=== PATIENT | female | born 1975 | race Two or more races ===

== ENCOUNTER 2017-09-14 12:25 | Emergency (ER) | payer MEDICAID, OTHER ==
[~2017-09-14] VITALS: Ht 160 cm; Wt 63.5 kg
--- NOTE | 2017-09-14 13:01 | Emergency Room Report ---
History of Present Illness General Chief Complaint: Back Pain-No Injury Source: Patient Present Illness HPI 42-year-old female presents to the emergency department complaining of 10 out of 10 in severity acute onset right flank pain that radiates down into the bladder area x3 days. Patient reports pain comes and go she reports urinary frequency and dysuria. Patient denies fevers or chills however she states she feels very lethargic as if she is "sick" She denies hematuria or history of stones. She reports some nausea denies vomiting, constipation or diarrhea. Patient denies vaginal discharge, rashes or lesions in the genital area. Swollen tender lymph nodes. Denies recent strenuous activity. Denies CP, Palpitations, LOC, AMS, dizziness, Changes in Vision, Sensation, paresthesias, or a sudden severe headache. Allergies: Coded Allergies: PENICILLINS (Verified Allergy, Severe, 09/14/17) Patient History Past Medical History: see triage record Past Surgical History: none Pertinent Family History: none Last Menstrual Period: 2 weeks Now: No Reviewed Nursing Documentation: PMH: Agreed, PSxH: Agreed Nursing Documentation-PMH Past Medical History: No History, Except For Hx Asthma: Yes Review of Systems All Other Systems: negative except mentioned in HPI Physical Exam Vital Signs Date Time Temp Pulse Resp B/P (MAP) Pulse Ox O2 Delivery O2 Flow Rate FiO2 09/14/17 12:31 97.9 100 18 101/64 100 Room Air Sp02 EP Interpretation: reviewed, normal General Appearance: alert, GCS 15, non-toxic, mild distress Head: normocephalic, atraumatic ENT: hearing grossly normal, normal voice Neck: full range of motion Respiratory: lungs clear, normal breath sounds, speaking full sentences Cardiovascular #1: regular rate, rhythm Gastrointestinal: normal bowel sounds, soft, tenderness - Mild RUQ TTP, right CVA is most appreciable, no RLQ, macburny's. Rectal: deferred Genitourinary: CVA tenderness (R) Musculoskeletal: back normal, gait/station normal, normal range of motion, non- tender Neurologic: alert, oriented x3, responsive, motor strength/tone normal, sensory intact, speech normal, grossly normal Psychiatric: judgement/insight normal Skin: normal color, no rash, warm/dry, well hydrated Medical Decision Making PA Attestation Dr. Reinoso is my supervising Physician whom patient management has been discussed with. Diagnostic Impression: Primary Impression: Pyelonephritis Additional Impression: Cystitis ER Course 42-year-old female presents to the emergency department complaining of 10 out of 10 in severity acute onset right flank pain that radiates down into the bladder area x3 days. Patient reports pain comes and go she reports urinary frequency and dysuria. Patient denies fevers or chills however she states she feels very lethargic as if she is "sick" She denies hematuria or history of stones. She reports some nausea denies vomiting, constipation or diarrhea. Patient denies vaginal discharge, rashes or lesions in the genital area. Swollen tender lymph nodes. Denies recent strenuous activity. Denies CP, Palpitations, LOC, AMS, dizziness, Changes in Vision, Sensation, paresthesias, or a sudden severe headache. Ddx considered but are not limited to Diverticulitis, acute appy, diarrhea,UC, PUD, GE, pancreatitis, gallstone, kidney stone, pyelonephritis, UTI, obstruction. Vital signs: are WNL, pt. is afebrile H&PE are most consistent with UTi and possible Renal Stone ORDERS: - UA: RBC's, occult blood - US abdomen : small anechoic structures in the right kidney ED INTERVENTIONS: -- Percocet PO -Cipro PO -Rocephin IM DISCHARGE: At this time pt. is stable for d/c to home. Will provide printed patient care instructions, and any necessary prescriptions. Care plan and follow up instructions have been discussed with the patient prior to discharge. Labs Test 09/14/17 12:35 Urine Color Yellow Urine Appearance Slightly cloudy Urine pH 6 (4.5-8.0) Urine Specific Norman 1.010 (1.005-1.035) Urine Protein 3+ (NEGATIVE) Urine Glucose (UA) Negative (NEGATIVE) Urine Ketones Negative (NEGATIVE) Urine Occult Blood 2+ (NEGATIVE) Urine Nitrite Negative (NEGATIVE) Urine Bilirubin Negative (NEGATIVE) Urine Urobilinogen Normal MG/DL (0.0-1.0) Urine Leukocyte Esterase 3+ (NEGATIVE) Urine RBC 2-4 /HPF (0 - 2) Urine WBC 15-20 /HPF (0 - 2) Urine Squamous Epithelial Cells Many /LPF (NONE/OCC) Urine Bacteria Few /HPF (NONE) Urine HCG, Qualitative Negative CT/MRI/US Diagnostic Results CT/MRI/US Diagnostic Results : Imaging Test Ordered: Abdominal US Impression Notes "a small right renal parapelvic cyst otherwise does not mention hydronephrosis, stone, gallbladder abnormality or liver abnormality". Per official radiology report- Please see report for specific details. Please see official radiology report for further details. Last Vital Signs Date Time Temp Pulse Resp B/P (MAP) Pulse Ox O2 Delivery O2 Flow Rate FiO2 09/14/17 12:31 97.9 100 18 101/64 100 Room Air Disposition: HOME, SELF-CARE Condition: Stable Scripts Aspirin/Acetaminophen/Caffeine (EXCEDRIN MIGRAINE GELTAB) 1 Each Tablet 1 EACH PO Q6HR, #20 TAB Prov: Ana Botello 09/14/17 Tramadol Hcl* (ULTRAM*) 50 Mg Tablet 50 MG ORAL Q6H Y for For Pain, #10 TAB 0 Refills Prov: Ana Botello 09/14/17 Phenazopyridine Hcl* (PYRIDIUM*) 200 Mg Tablet 200 MG ORAL THREE TIMES A DAY for 3 Days, #9 TAB 0 Refills Prov: Ana Botello. 09/14/17 Ciprofloxacin Hcl* (CIPROFLOXACIN HCL*) 500 Mg Tablet 500 MG ORAL EVERY 12 HOURS for 10 Days, #20 TAB 0 Refills Prov: Ana Botello. 09/14/17 Departure Forms: Return to Work Return to Work Date: Sep 18, 2017 Work Restrictions: None, No Heavy Lifting, No Prolonged Standing Return to Full Activity: Sep 25, 2017 Patient Instructions: Pyelonephritis, Adult, Urinary Tract Infection, Easy-to- Read Additional Instructions: Take medications as directed. Follow up with a Primary Care Provider in 3-5 days, even if your symptoms have resolved. --Please review list of primary care clinics, if you do not already have a primary care provider Return sooner to ED if new symptoms occur, or current symptoms become worse. - Please note that this Emergency Department Report was dictated using [employer]sheep clipper technology software, occasionally this can lead to erroneous entry secondary to interpretation by the dictation equipment. Ana Botello Sep 14, 2017 13:01
[2017-09-14 13:10] LABS: APPEARANCE,URINE SLIGHTLY CLOUDY; BILIRUBIN, URINE NEGATIVE (NEGATIVE); GLUCOSE, URINE (UA) NEGATIVE (NEGATIVE); KETONES,URINE NEGATIVE (NEGATIVE); LEUKOCYTE ESTERASE ,URINE 3+ (NEGATIVE); NITRITE,URINE NEGATIVE (NEGATIVE); PH,URINE 6 (4.5-8.0); PROTEIN,URINE 3+ (NEGATIVE); UROBILINOGEN,URINE NORMAL MG/DL (0.0-1.0)
[2017-09-14 13:15] LABS: COLOR,URINE YELLOW
[2017-09-14] MEDS ORDERED: oxyCODONE HCL/Acetaminophen 5/325mg ORAL ONE (13:15)
[2017-09-14] MEDS ORDERED: Ciprofloxacin 500mg tab ORAL ONE (13:30)
--- NOTE | 2017-09-14 15:29 | Diagnostic Imaging Report ---
Indication: Right flank pain Technique: Martinez-scale and duplex images of the upper abdomen were obtained Comparison: none Findings: Gallbladder is unremarkable, without stones, wall thickening, nor pericholecystic fluid. Common bile duct measures 3 mm in diameter. No intrahepatic biliary ductal dilatation. Liver demonstrates normal echogenicity, no focal abnormality. Portal vein and hepatic veins are patent. Pancreas is unremarkable. Spleen is unremarkable. Left kidney measures 9.3 cm in length. Right kidney measures 10.8 cm length. Both kidneys demonstrate normal echogenicity. There is no hydronephrosis. There is a small right renal parapelvic cyst . Non-aneurysmal abdominal aorta . Impression: Essentially unremarkable exam. Negative for gallstones, dilated ducts, or other acute pathology Incidental finding right renal parapelvic cyst
[2017-09-14] MEDS ORDERED: Lidocaine 1% MPF 10mg/ml 5ml INJ ONE (16:15)
[2017-09-14] MEDS ORDERED: PHENAZOPYRIDIN200 MG ORAL (16:35)
[2017-09-14] MEDS ORDERED: CIPROFLOXACIN500 M2 ORAL (16:35)
[2017-09-14] MEDS ORDERED: TRAMADOL HCL50 MG ORAL (16:35)
[2017-09-14 16:36] VITALS: BP 114/75
[2017-09-14] MEDS ORDERED: EXCEDRIN MIGRA1 EACH PO (16:36)
[2017-09-14 16:53] VITALS: BP 114/75
== END 2017-09-14 16:53 | disposition home or self-care (01) ==
LOC: EMR 13:00
DX: N12 Tubulo-interstitial nephritis, not specified as acute or chronic (principal); N30.90 Cystitis, unspecified without hematuria; Z88.0 Allergy status to penicillin; J45.909 Unspecified asthma, uncomplicated
CPT/HCPCS: 76700; 81003; 81025; 87086; 87181; 96372; 99284; J0696

== ENCOUNTER 2017-11-10 22:06 | Emergency (ER) | payer MEDICAID ==
[~2017-11-10] VITALS: Ht 160 cm; Wt 59.0 kg
[~2017-11-10 22:06] MED LIST: CIPROFLOXACIN500 M2 ORAL; EXCEDRIN MIGRA1 EACH PO; PHENAZOPYRIDIN200 MG ORAL; TRAMADOL HCL50 MG ORAL
[2017-11-10] MEDS ORDERED: ALBUTEROL2.5 MG/3 M INH (22:15)
[2017-11-10] MEDS ORDERED: IBUPROFEN600 MG ORAL (22:21)
[2017-11-10] MEDS ORDERED: ROBAXIN-750750 MG PO (22:21)
[2017-11-10] MEDS ORDERED: Methocarbamol 750mg tab ORAL ONE (22:30)
[2017-11-10] MEDS ORDERED: VENTOLIN HFA18 GM INH (22:34)
[2017-11-10 22:36] VITALS: BP 136/83
--- NOTE | 2017-11-10 22:50 | Emergency Room Report ---
History of Present Illness General Chief Complaint: Lower Back Pain or Injury Source: Patient Present Illness HPI 42-year-old female with pmhx of asthma p/w back pain for 7 days. Patient states pain started when she slipped and fell. Pain is localized to bilateral lower back, sharp in nature, radiating down leg. Movement worsens pain. There are no alleviating factors. Patient has not taken any pain medication This is the first occurrence of back pain. Denies trauma. Denies lower extremity weakness/numbness, no bowel/bladder retention or incontinence, saddle anesthesia. Denies fever, chills, abdominal pain, n/v, dysuria/hematuria. No history of IVDA Also states that she ran out of her blood albuterol, no shortness of breath or wheezing Allergies: Coded Allergies: PENICILLINS (Verified Allergy, Severe, 09/14/17) Patient History Past Medical History: see triage record Past Surgical History: none Pertinent Family History: none Last Menstrual Period: 10/02/17 Now: No : 1 Para: 1 Reviewed Nursing Documentation: PMH: Agreed; PSxH: Agreed Nursing Documentation-PMH Hx Asthma: Yes Review of Systems All Other Systems: negative except mentioned in HPI Physical Exam Vital Signs Date Time Temp Pulse Resp B/P (MAP) Pulse Ox O2 Delivery O2 Flow Rate FiO2 11/10/17 22:12 98.2 95 14 136/83 96 Room Air 98.2 Sp02 EP Interpretation: reviewed, normal General Appearance: normal inspection, well appearing, no apparent distress, alert, GCS 15, non-toxic Head: normocephalic, atraumatic Eyes: bilateral eye normal inspection, bilateral eye PERRL, bilateral eye EOMI ENT: normal ENT inspection, normal pharynx, normal voice, moist mucus membranes Neck: normal inspection, full range of motion, supple Respiratory: normal inspection, lungs clear, normal breath sounds, no respiratory distress, no retraction, no wheezing, speaking full sentences, chest symmetrical Cardiovascular #1: normal inspection, regular rate, rhythm, normal capillary refill Cardiovascular #2: 2+ radial (R), 2+ radial (L) Gastrointestinal: normal inspection, non tender, soft, non-distended, no guarding Musculoskeletal: other - Paraspinal lower lumbar tenderness, no midline tenderness, full range of motion all extremity, able to bear weight on both legs without issue, able to ambulate without issue Neurologic: normal inspection, alert, oriented x3, responsive, motor strength/ tone normal, sensory intact, normal gait, speech normal Psychiatric: normal inspection, judgement/insight normal, memory normal Skin: normal inspection, normal color, no rash, warm/dry, well hydrated, normal turgor Medical Decision Making Diagnostic Impression: Primary Impression: Back pain ER Course 42-year-old female p/w back pain after a fall a week ago DDX: Likely musculoskeletal back pain vs. muscular strain vs. sciatica Serious diagnoses such as cord compression, epidural abscess is unlikely in this patient given the clinical scenario and abscess of neurological symptoms or findings. Patient appears nontoxic. Plan: Motrin, robaxin ER course: Patient has remained nontoxic appearing and ambulatory in the ED. Pain improved w/ medications Disposition: Patient will be discharged to home with prescription of motrin and robaxin. Strict precautions discussed with patient on when to emergently return to the ED which includes severe/worsening back pain, leg weakness/numbness, urinary retention/incontinence, fever or chills, which may indicate severe illness. Patient is to follow up with their PMD within 5 days. Patient agrees with plan. Please note that this Emergency Department Report was dictated using [employer] technology software, occasionally this can lead to erroneous entry secondary to interpretation by the dictation equipment. Last Vital Signs Date Time Temp Pulse Resp B/P (MAP) Pulse Ox O2 Delivery O2 Flow Rate FiO2 11/10/17 22:36 98.2 95 14 136/83 96 Room Air 98.2 Disposition: HOME, SELF-CARE Condition: Improved Scripts Albuterol Sulfate (VENTOLIN HFA) 18 Gm Hfa.aer.ad 2 PUFFS INH EVERY 6 HOURS, #18 GM 2 Refills Prov: Myke Benavides M.D. 11/10/17 Ibuprofen* (MOTRIN*) 600 Mg Tablet 600 MG ORAL Q8H PRN for For Pain, #30 TAB 0 Refills Prov: RetinoMyke M.D. 11/10/17 Methocarbamol* (ROBAXIN-750*) 750 Mg Tablet 750 MG PO QID, #28 TAB 0 Refills Prov: [email or web address] 11/10/17 Patient Instructions: Back Pain, Adult Myke Benavides M.D. Nov 10, 2017 22:50
[2017-11-10 22:58] VITALS: BP 136/83
== END 2017-11-10 22:58 | disposition home or self-care (01) ==
LOC: EMR 22:30
DX: M54.5 Low back pain (principal); W01.0XXA Fall on same level from slipping, tripping and stumbling without subsequent striking against object, initial encounter; Y92.9 Unspecified place or not applicable; J45.909 Unspecified asthma, uncomplicated; Z88.0 Allergy status to penicillin
CPT/HCPCS: 99284